=== PATIENT | male | born 1970 | race Two or more races ===

== ENCOUNTER 2019-03-15 08:59 | Inpatient (IN) | payer OTHER ==
[~2019-03-15] VITALS: Ht 182.9 cm; Wt 90.7 kg
[2019-03-30] MEDS ORDERED: INTESTINEX680 M1 PO (09:55)
[2019-03-30] MEDS ORDERED: PERCOCET 5-3251 EACH PO (09:55)
[2019-03-30] MEDS ORDERED: PRILOSEC OTC20 MG PO (09:55)
== END 2019-03-30 13:46 | disposition home or self-care (01) | DRG 330 ==
LOC: EDUNIT# 03-22 09:30 → O/R 03-27 07:15 → SURG 03-27 09:30
PROVIDERS: Urology; ADMIT Surgery
PROC: 0DTN4ZZ Resection of Sigmoid Colon, Percutaneous Endoscopic Approach (ICD-10-PCS; principal; 2019-03-27 15:45)
PROC: 0DJD8ZZ Inspection of Lower Intestinal Tract, Via Natural or Artificial Opening Endoscopic (ICD-10-PCS; 2019-03-27 15:45)
DX: K57.20 Diverticulitis of large intestine with perforation and abscess without bleeding (principal); N32.1 Vesicointestinal fistula

== ENCOUNTER → 2019-03-15 10:01 | Outpatient (CLI) | payer OTHER | END | disposition home or self-care (01) | LOC: LAB 10:01 | DX: K57.20 Diverticulitis of large intestine with perforation and abscess without bleeding (principal); K57.32 Diverticulitis of large intestine without perforation or abscess without bleeding; N32.1 Vesicointestinal fistula ==

== ENCOUNTER → 2019-03-16 | Outpatient (CLI) | payer OTHER | END | disposition home or self-care (01) | LOC: RAD 08:24 | DX: K57.20 Diverticulitis of large intestine with perforation and abscess without bleeding (principal); K57.32 Diverticulitis of large intestine without perforation or abscess without bleeding; N32.1 Vesicointestinal fistula ==

== ENCOUNTER → 2019-03-20 08:57 | Outpatient (CLI) | payer OTHER | END | disposition home or self-care (01) | LOC: LAB 08:57 | DX: N32.1 Vesicointestinal fistula (principal); K57.20 Diverticulitis of large intestine with perforation and abscess without bleeding ==

== ENCOUNTER 2020-08-25 12:11 | Day surgery (SDC) | payer OTHER ==
[~2020-08-25 12:11] MED LIST: INTESTINEX680 M1 PO; PERCOCET 5-3251 EACH PO; PRILOSEC OTC20 MG PO
== END 2020-08-25 15:05 | disposition home or self-care (01) ==
LOC: AMB-ENDOS 12:11
PROVIDERS: ATTEND Surgery
DX: K63.5 Polyp of colon (principal); Z20.822 Contact with and (suspected) exposure to COVID-19